=== PATIENT | male | born 1975 | race American Indian/Alaskan Native ===

== ENCOUNTER 2017-01-19 04:52 | Emergency (ER) | payer BC, OTHER ==
[2017-01-19 05:05] VITALS: BP 138/90; PULSE 65; RESP 16; TEMP 98; O2SAT 99
--- NOTE | 2017-01-19 05:22 | ED PDOC ---
HPI: Chest Pain Time Seen by Provider: 01/19/17 05:19 Chief Complaint (Nursing): Chest Pain Chief Complaint (Provider): CP History Per: Patient (41 Y/O MALE H/O ANXIETY HERE WITH CHEST PAIN DESCRIBED PRESSURE ON CHEST WALL THAT OCCURRED WHEN HE BECAME ANXIOUS REGARDING DYSPNEA NOTED WHILE SLEEPING. DENIES ANY FEVERS/CHILLS/COUGH/URI/VOMITING/DIARRHEA. HAS HAD FLIGHT TO [facility] 1 MONTH AGO. DOES NOT SMOKE. FAMILY H/O ID PATERNAL GRANDMOTHER/MATERNAL GRANDFATHER AGES 52 AND 58. NO PERSONAL H/O ID. PATEINT TOOK ASA 324MG PRIOR TO ED ARRIVAL) Past Medical History Reviewed: Historical Data, Nursing Documentation, Vital Signs Vital Signs: Last Vital Signs Temp 98.0 F 01/19/17 05:03 Pulse 65 01/19/17 05:03 Resp 16 01/19/17 05:03 BP 138/90 01/19/17 05:03 Pulse Ox 99 01/19/17 05:43 - Medical History PMH: Anxiety, HTN - Family History Family History: States: Unknown Family Hx - Immunization History Hx Tetanus Toxoid Vaccination: No Hx Influenza Vaccination: No Hx Pneumococcal Vaccination: No - Home Medications Home Medications: Ambulatory Orders Medication Instructions Recorded ALPRAZolam [Xanax] 1 mg PRN PRN 05/13/15 Cyclobenzaprine [Cyclobenzaprine 10 mg PO Q8 #15 tab 05/13/15 HCl] Ibuprofen [Motrin] 600 mg PO Q8 #30 tab 05/13/15 Oxycodone HCl/Acetaminophen 1 each PO Q6 #12 tablet 05/13/15 [Percocet 5-325 mg Tablet] - Allergies Allergies/Adverse Reactions: Allergies Allergy/AdvReac Type Severity Reaction Status Date / Time Penicillins Allergy RASH Verified 01/19/17 05:05 Review of Systems ROS Statement: Except As Marked, All Systems Reviewed And Found Negative Physical Exam - Reviewed Nursing Documentation Reviewed: Yes Vital Signs Reviewed: Yes - Physical Exam Appears: Positive for: Well, Non-toxic, No Acute Distress Head Exam: Positive for: ATRAUMATIC, NORMAL INSPECTION, NORMOCEPHALIC Skin: Positive for: Normal Color, Warm, DRY Eye Exam: Positive for: EOMI, Normal appearance, PERRL ENT: Positive for: Normal ENT Inspection Neck: Positive for: Normal, Painless ROM Cardiovascular/Chest: Positive for: Regular Rate, Rhythm Respiratory: Positive for: CNT, Normal Breath Sounds Gastrointestinal/Abdominal: Positive for: Normal Exam, Bowel Sounds, Soft Back: Positive for: Normal Inspection Extremity: Positive for: Normal ROM Neurologic/Psych: Positive for: Alert, Oriented - ECG O2 Sat by Pulse Oximetry: 99 Disposition - Clinical Impression Clinical Impression: Chest pain - Patient ED Disposition Is Patient to be Admitted: Transfer of Care - Disposition Disposition: Transfer of Care Disposition Time: 06:00 Condition: FAIR Forms: [employer] (German) Patient Signed Over To: Damian Lovett Handoff Comments: BLOODWORK/RE-EVAL
--- NOTE | 2017-01-19 06:12 | ED PDOC ---
- Laboratory Results Result Diagrams: 01/19/17 05:20 - ECG O2 Sat by Pulse Oximetry: 99 (RA) Pulse Ox Interpretation: Normal Medical Decision Making Medical Decision Making: Time: 6:00 --Patient is signed out to me by Mayra Colmenares PA-C pending labs and reevaluation. Time: 7:00 --Patient is signed out by me to Dr. Singh pending labs and reevaluation. Scribe Attestation: Documented by Zen Brice, acting as a scribe for Damian Lovett MD Provider Scribe Attestation: All medical record entries made by the Scribe were at my direction and personally dictated by me. I have reviewed the chart and agree that the record accurately reflects my personal performance of the history, physical exam, medical decision making, and the department course for this patient. I have also personally directed, reviewed, and agree with the discharge instructions and disposition. Disposition - Clinical Impression Clinical Impression: Chest pain - POA Present On Arrival: None - Disposition Disposition: Routine/Home Disposition Time: 07:00 Condition: FAIR Forms: [employer] (Albanian)
[2017-01-19 06:17] LABS: BASO % 0.8 % (0.0-2.0); EOS # 0.1 K/uL (0.0-0.7); EOS % 2.4 % (0.0-4.0); HEMATOCRIT 45.8 % (35.0-51.0); LYMPH # 3.1 K/uL (1.0-4.3); MEAN CELL VOLUME 91.9 fl (80.0-94.0); MEAN CORPUSCULAR HEMOGLOBIN 31.7 pg (27.0-31.0); MEAN CORPUSCULAR HGB CONC 34.5 g/dL (33.0-37.0); MEAN PLATELET VOLUME 8.3 fl (7.2-11.7); MONO # 0.4 K/uL (0.0-0.8); MONO % 5.9 % (0.0-10.0); NEUT # 2.3 K/uL (1.8-7.0); NEUT % 38.9 % (50.0-75.0); NRBC % 0.1 % (0.0-0.0); RED CELL DISTRIBUTION WIDTH 12.3 % (11.5-14.5)
[2017-01-19 06:52] LABS: ALB/GLOB RATIO 1.2 (1.0-2.1); ALKALINE PHOSPHATASE 49 U/L (38-126); ALT/SGPT 33 U/L (21-72); AST/SGOT 28 U/L (17-59); BILIRUBIN,TOTAL 0.7 mg/dl (0.2-1.3); BLOOD UREA NITROGEN 10 mg/dl (9-20); CALCIUM 8.9 mg/dL (8.4-10.2); CARBON DIOXIDE 28 mmol/L (22-30); CHLORIDE 103 mmol/L (98-107); GFR AFRICAN-AMERICAN > 60; GLUCOSE,RANDOM 95 mg/dL (75-110); SODIUM 142 mmol/l (132-148); TOTAL PROTEIN 7.1 G/DL (6.3-8.2)
--- NOTE | 2017-01-19 07:45 | CARD ---
APPROVED REPORT EKG Measurement Heart [id number] DC [id number] <Conclusion> Normal sinus rhythm Normal ECG
--- NOTE | 2017-01-19 07:59 | ED PDOC ---
- Laboratory Results Result Diagrams: 01/19/17 05:20 01/19/17 05:20 - ECG O2 Sat by Pulse Oximetry: 99 (RA) - Progress Re-evaluation Time: 07:57 Condition: Improved (cHEST DISCOMFORT AND sob RESOLVED. pT THINKS IT WAS ANXIETY RELATED. wILL hAVE PT F/U WITH pmd WITH OUTPT STRESS TEST.) Disposition - Clinical Impression Clinical Impression: Chest pain - POA Present On Arrival: None - Disposition Referrals: Sherwin Willams MD [Staff Provider] - Disposition: Routine/Home Disposition Time: 07:58 Condition: FAIR Prescriptions: Non-Formulary 1 ea .ROUTE Q6 #1 ea Instructions: Chest Pain (ED) Forms: [employer] (Azeri)
--- NOTE | 2017-01-19 09:26 | RAD ---
HISTORY: Chest pain COMPARISON: No prior. FINDINGS: LUNGS: The lungs are clear. PLEURA: No significant pleural effusion identified, no pneumothorax apparent. CARDIOVASCULAR: Normal. OSSEOUS STRUCTURES: No significant abnormalities. VISUALIZED UPPER ABDOMEN: Normal. OTHER FINDINGS: None. IMPRESSION: No active pulmonary disease.
== END 2017-01-19 08:24 | disposition home or self-care (01) ==
LOC: H.ER 04:52
DX: R07.89 Other chest pain (principal); F41.9 Anxiety disorder, unspecified; I10 Essential (primary) hypertension; I25.2 Old myocardial infarction; Z88.0 Allergy status to penicillin

== ENCOUNTER 2017-01-24 05:47 | Emergency (ER) | payer OTHER ==
[2017-01-24 06:42] LABS: BASO % 0.8 % (0.0-2.0); EOS # 0.1 K/uL (0.0-0.7); EOS % 1.9 % (0.0-4.0); HEMATOCRIT 44.3 % (35.0-51.0); LYMPH # 2.7 K/uL (1.0-4.3); LYMPH % 48.6 % (20.0-40.0); MEAN CELL VOLUME 91.9 fl (80.0-94.0); MEAN CORPUSCULAR HEMOGLOBIN 31.1 pg (27.0-31.0); MEAN CORPUSCULAR HGB CONC 33.9 g/dL (33.0-37.0); MONO # 0.3 K/uL (0.0-0.8); MONO % 5.3 % (0.0-10.0); NEUT # 2.4 K/uL (1.8-7.0); NEUT % 43.4 % (50.0-75.0); RED CELL DISTRIBUTION WIDTH 12.8 % (11.5-14.5); WHITE BLOOD COUNT 5.6 K/uL (4.8-10.8)
--- NOTE | 2017-01-24 06:44 | ED PDOC ---
HPI: Chest Pain Time Seen by Provider: 01/24/17 05:57 Chief Complaint (Nursing): Chest Pain Chief Complaint (Provider): Chest pain, shortness of breath History Per: Patient History/Exam Limitations: no limitations Onset/Duration Of Symptoms: Hrs Current Symptoms Are (Timing): Better Additional History Per: Patient Additional Complaint(s): The patient is a 41yo male, presents to ED with complaints of shortness of breath and chest pain with which he woke up at 2AM today. Patient was seen in the ED for similar complaints 4 days ago and had a normal workup. Patient states this morning, when he checked his blood pressure he had a systolic reading of 190. Patient states he has no history of hypertension or any other medical history; patient also denies any significant immediate family history. He states by the time he arrived to the ED, his symptoms had improved mildly. Of note, patient also reports an intermittent leg pain; he denies any recent travels, surgeries or immobilizations. No other medical complaints. Past Medical History Reviewed: Historical Data, Nursing Documentation, Vital Signs Vital Signs: Last Vital Signs Temp 96.5 F L 01/24/17 08:12 Pulse 78 01/24/17 08:12 Resp 19 01/24/17 08:12 BP 126/78 01/24/17 08:12 Pulse Ox 98 01/24/17 08:12 - Medical History PMH: Anxiety, HTN - Surgical History Surgical History: No Surg Hx - Family History Family History: States: No Known Family Hx, Unknown Family Hx - Immunization History Hx Tetanus Toxoid Vaccination: No Hx Influenza Vaccination: No Hx Pneumococcal Vaccination: No - Home Medications Home Medications: Ambulatory Orders Medication Instructions Recorded ALPRAZolam [Xanax] 1 mg PRN PRN 05/13/15 Cyclobenzaprine [Cyclobenzaprine 10 mg PO Q8 #15 tab 05/13/15 HCl] Ibuprofen [Motrin] 600 mg PO Q8 #30 tab 05/13/15 Oxycodone HCl/Acetaminophen 1 each PO Q6 #12 tablet 05/13/15 [Percocet 5-325 mg Tablet] Non-Formulary 1 ea .ROUTE Q6 #1 ea 01/19/17 ALPRAZolam [Xanax] 1 mg PO Q8 #12 tab 01/24/17 - Allergies Allergies/Adverse Reactions: Allergies Allergy/AdvReac Type Severity Reaction Status Date / Time Penicillins Allergy RASH Verified 01/24/17 05:53 Review of Systems ROS Statement: Except As Marked, All Systems Reviewed And Found Negative Cardiovascular: Positive for: Chest Pain, Other (elevated blood pressure) Respiratory: Positive for: Shortness of Breath Musculoskeletal: Negative for: Leg Pain Physical Exam - Reviewed Nursing Documentation Reviewed: Yes Vital Signs Reviewed: Yes - Physical Exam Head Exam: Positive for: ATRAUMATIC, NORMAL INSPECTION, NORMOCEPHALIC Neck: Positive for: Supple Cardiovascular/Chest: Positive for: Regular Rate, Rhythm Respiratory: Positive for: Normal Breath Sounds. Negative for: Respiratory Distress Extremity: Positive for: Normal ROM. Negative for: Calf Tenderness, Swelling Neurologic/Psych: Positive for: Alert, Oriented, Mood/Affect (anxious) - Laboratory Results Result Diagrams: 01/24/17 06:30 01/24/17 06:30 - ECG ECG: Positive for: Interpreted By Me, Viewed By Me ECG Rhythm: Positive for: Normal QRS, Normal ST Segment, Sinus Rhythm Rate: 68 O2 Sat by Pulse Oximetry: 99 (RA) Pulse Ox Interpretation: Normal Medical Decision Making Medical Decision Making: Time: 625 Impression: Anxious Plan: -- Labs -- EKG Reassess Time: 699 Patient to be signed out to Dr. Singh pending labs, re-evaluation. Scribe Attestation: Documented by Mariposa Callaway acting as a scribe for Ramakrishna Dixon MD. Provider Attestation: All medical record entries made by the Scribe were at my direction and personally dictated by me. I have reviewed the chart and agree that the record accurately reflects my personal performance of the history, physical exam, medical decision making, and the department course for this patient. I have also personally directed, reviewed, and agree with the discharge instructions and disposition. Disposition - Clinical Impression Clinical Impression: Atypical chest pain - Patient ED Disposition Is Patient to be Admitted: Transfer of Care - Disposition Referrals: [facility] [Outside] Sherwin Willams MD [Family Provider] - Disposition: Transfer of Care Disposition Time: 07:00 Condition: STABLE Prescriptions: ALPRAZolam [Xanax] 1 mg PO Q8 #12 tab Instructions: Chest Pain (ED), Anxiety (ED) Forms: [employer] (Thai) Patient Signed Over To: Joey Singh Handoff Comments: pending labs, re-eval
[2017-01-24 06:54] LABS: BLOOD UREA NITROGEN 9 mg/dl (9-20); CALCIUM 9.1 mg/dL (8.4-10.2); CARBON DIOXIDE 26 mmol/L (22-30); CHLORIDE 106 mmol/L (98-107); GFR AFRICAN-AMERICAN > 60; GLUCOSE,RANDOM 108 mg/dL (75-110); POTASSIUM 4.2 MMOL/L (3.6-5.0); SODIUM 142 mmol/l (132-148)
[2017-01-24 08:13] VITALS: BP 126/78; RESP 19; TEMP 96.5
[2017-01-25 01:13] VITALS: PULSE 68; O2SAT 99
--- NOTE | 2017-01-25 08:43 | CARD ---
APPROVED REPORT EKG Measurement Heart [id number] IN 140P26 [id number] <Conclusion> Normal sinus rhythm Normal ECG
== END 2017-01-24 08:13 | disposition home or self-care (01) ==
LOC: H.ER 05:47
DX: R07.89 Other chest pain (principal); I10 Essential (primary) hypertension; Z88.0 Allergy status to penicillin; F41.9 Anxiety disorder, unspecified